=== PATIENT | female | born 1980 | race Caucasian/White ===

== ENCOUNTER 2022-05-15 23:08 | Emergency (ER) | payer MEDICAID, OTHER ==
[~2022-05-15] VITALS: Ht 152.4 cm; Wt 68.0 kg
[2022-05-16] MEDS ORDERED: ONDANSETRON ODT 4 MG TAB.RAPDIS SL ONE (00:15)
[2022-05-16] MEDS ORDERED: ONDANSETRON ODT 4 MG TAB.RAPDIS ONE (00:42)
[2022-05-16] MEDS ORDERED: ONDA4TAB5 PO (00:55)
[2022-05-16] MEDS ORDERED: TRAM50TA2 PO (00:55)
[2022-05-16 01:10] VITALS: BP 131/78
--- NOTE | 2022-05-16 01:10 | NUR ---
Patient discharged to home in stable condition. Written and verbal after care instructions given. Patient verbalizes understanding of instructions. Stressed follow up or return to ER for worsening s/s. Patient is a/ox4, NAD noted. Patient is able to walk witgh steady gait
== END 2022-05-16 01:11 | disposition home or self-care (01) ==
LOC: ER 23:20
DX: R11.2 Nausea with vomiting, unspecified (principal); R51.9 Headache, unspecified; Z90.49 Acquired absence of other specified parts of digestive tract; Z90.710 Acquired absence of both cervix and uterus; G89.29 Other chronic pain; Z88.8 Allergy status to other drugs, medicaments and biological substances; N80.9 Endometriosis, unspecified
CPT/HCPCS: A4663; Q0162